=== PATIENT | male | born 1945 | race Caucasian/White ===

== ENCOUNTER 2023-06-04 23:31 | Inpatient (IN) | payer OTHER, SELFPAY ==
[2023-06-04 19:33] VITALS: BP 104/69
[2023-06-04 19:40] VITALS: BMI 31.9
[2023-06-04] MEDS: TYLENOL 1000 MG PO (19:43)
[2023-06-04 19:56] LABS: % Basophils 0.6 % (0-2); % Immature Granulocytes 0.2 % (0-0.5); % Lymphocytes 6.5 % (20.5-51.1); % Monocytes 7.8 % (1.7-9.3); % Neutrophils 84.9 % (42.2-75.2); Absolute Basophils 0.1 10^3/uL (0-0.2); Absolute Lymphocytes 0.6 10^3/uL (1.2-3.4); Absolute Monocytes 0.7 10^3/uL (0.1-0.6); Absolute Neutrophils 7.6 10^3/uL (1.4-6.5); Hematocrit 43.6 % (39.0-52.0); Hemoglobin 15.7 g/dL (13.0-18.0); Mean Corpuscular Hgb 34.9 pg (27.0-31.0); Mean Corpuscular Volume 96.9 fL (80.0-94.0); Mean Platelet Volume 10.4 fL (7.4-10.4); Nucleated Red Blood Cells % 0 % (-); Platelet Count 198 10^3/uL (130-400); Red Cell Dist. Width 12.4 % (11.5-14.5)
[2023-06-04 20:06] LABS: INR 1.28; PT 15.8 Sec (11.4-14.6)
[2023-06-04 20:15] LABS: ALT (SGPT) 21 U/L (0-50); AST (SGOT) 28 U/L (17-59); Albumin 3.9 g/dl (3.5-5.0); Alkaline Phosphatase 51 U/L (38-126); Blood Urea Nitrogen 22 mg/dl (9-20); Calcium 8.9 mg/dl (8.4-10.2); Carbon Dioxide 22 mmol/L (22-30); Chloride 95 mmol/L (98-107); Estimated Creatinine Clearance 64 ml/min; Glucose 396 mg/dl (70-99); Potassium 4.5 mmol/L (3.5-5.1); Sodium 129 mmol/L (135-145); Total Bilirubin 0.7 mg/dl (0.2-1.3); Total Protein 6.5 g/dl (6.3-8.2); eGFR > 60.00
[2023-06-04 21:07] VITALS: BP 101/66
--- NOTE | 2023-06-04 21:33 | ED.GENMED ---
History of Present Illness
General
Chief Complaint: Cold/Flu/URI Symptoms
Source: patient and spouse
Time Seen by Provider: 06/04/23 21:18
Travel History
Have you had any contact with someone who has COVID-19?: Yes
Comment: pt tested positive
Do you have any symptoms of coronavirus? Fever > 100 degrees, chills, cough, shortness of breath, sore throat, loss of taste or smell, muscle aches, or headache?: Yes
Symptoms:: tested positive
History of Present Illness
History of Present Illness:
77-year-old male with past medical history of hypertension, hyperlipidemia, diabetes, factor V Leiden deficiency presenting to the emergency department with from home after patient tested positive for COVID earlier this evening, noted
patient had significant weakness and fell to the ground, seems to be 'a little bit more loopy than usual', persistently febrile and generally feeling unwell. Spouse notes that the last time patient had similar he required admission for remdesivir
and steroids. Patient endorses a persistent cough today but is otherwise denying any shortness of breath, palpitations, diaphoresis, nausea, vomiting, abdominal pain or any other concerns.
Past History
Past History
ED Past Medical History: HTN, Hypercholesterolemia, NIDDM and Other (Factor V Leiden)
ED Past Surgical History: Other (Hernia repair)
Social History
Tobacco: Non-smoker
Alcohol: None
Drug: None
Personal:
Living: with family
Review of Systems
Review of Systems
All Other Systems: ROS reviewed and negative except as documented in HPI and ROS
Phy Exam
Physical Exam
Physical Exam:
GENERAL: Alert , in no apparent distress
EYE: conjunctiva clear
NECK: Supple
ENT: o/p clr, mmm.
CARDIAC: R tachycardic rate and rhythm with heart rate between 130 and 140 bpm
LUNGS: Clear breath sounds bilaterally, no acute respiratory distress, no wheezes/rales/rhonchi
NEUROLOGICAL: Alert and oriented
SKIN: Warm and dry, skin intact.
MUSCULOSKELETAL: well perfused.
PSYCH: Normal and appropriate interaction.
Scores
Heart Failure Risk
Heart Failure Risk Score: Not Applicable
Heart Score for Chest Pain Patients
STEMI patient?: Not applicable
Withdrawal Assessment of Alcohol
Withdrawal Assessment Completed?: Not applicable
Course
Orders/Labs/Results
Orders:
Orders
06/04/23 19:40
Acetaminophen [Tylenol] 1,000 mg PO NOW STA
06/04/23 19:44
CXR2 [CR Chest - 2 Views ] Urgent
Comment:
Reason For Exam: cough covid positive
06/04/23 19:49
CMP [Comprehensive Metabolic Panel] Urgent
Complete Blood Count/With Diff Urgent
PT/INR [Prothrombin Time] Urgent
06/04/23 21:10
ECG [Electrocardiogram (*1)] Urgent
Reason for Study: Tachycardia
Cardiology Consult: Unknown
06/04/23 21:11
EKG- Treatment ONCE
06/04/23 21:29
B-Hydroxybutyrate Urgent
PTT Urgent
Urinalysis Reflex To Culture Urgent
0.9% Sodium Chloride 1000 ml [Nss] 1,000 ml IV BOLUS
Insulin Aspart [NOVOLOG vial] 5 units SC NOW STA
Abnormal Lab Results
06/04/23
19:49
RBC 4.50 L 10^6/uL
(4.70-6.10)
MCV 96.9 H fL
(80.0-94.0)
MCH 34.9 H pg
(27.0-31.0)
Absolute Neuts (auto) 7.6 H 10^3/uL
(1.4-6.5)
Absolute Lymphs (auto) 0.6 L 10^3/uL
(1.2-3.4)
Absolute Monos (auto) 0.7 H 10^3/uL
(0.1-0.6)
Neutrophils % 84.9 H %
(42.2-75.2)
Lymphocytes % 6.5 L %
(20.5-51.1)
PT 15.8 H Sec
(11.4-14.6)
Sodium 129 L mmol/L
(135-145)
Chloride 95 L mmol/L
(98-107)
BUN 22 H mg/dl
(9-20)
Glucose 396 H mg/dl
(70-99)
06/04/23 19:49
06/04/23 19:49
Vital Signs
Initial and Last Documented VS:
Initial Vital Signs
Temp Pulse Resp BP Pulse Ox
101.6 F H 150 20 104/69 94
06/04/23 19:33 06/04/23 19:33 06/04/23 19:33 06/04/23 19:33 06/04/23 19:33
Last Documented Vital Signs
Temp Pulse Resp BP Pulse Ox
101.7 F H 132 24 101/66 93
06/04/23 21:24 06/04/23 21:07 06/04/23 21:07 06/04/23 21:07 06/04/23 21:25
MDM/Problems Addressed
Differential Diagnosis Includes:
COVID, pneumonia, I do not have concern for PE given symptoms started today and patient is on Coumadin.
MDM/Problems Addressed:
77-year-old male present emergency department for evaluation after testing positive for COVID earlier today, notes that patient seemed to have a slight change in mental status, generalized weakness and fell earlier today, fever found in the
emergency department and patient was given Tylenol for this but remains persistently febrile. Oxygen saturation between 90% on room air and 94% on room air. Patient's heart rate persistently around 135 bpm. Other lab work reveals patient has a
subtherapeutic INR, sodium of 129 and a glucose of 396. Anion gap of 12. Urinalysis and beta hydroxybutyrate ordered. Normal saline and 5 units subcutaneous NovoLog ordered. Will admit for continued evaluation and treatment.
Chronic conditions affecting care: DM
Acute Exacerbation and/or Progression of Chronic Illness: DM
*Pulse Oximetry
Patient hypoxic: no
*EKG
Interpreted by ED Provider?: Yes
Comparison EKG: no changes
Heart Rate: 137
Rate: tachycardiac
Rhythm: sinus
[place]: normal axis
Ischemia: no ischemia
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
Rate: tachycardiac
Rhythm: sinus
*Critical Care Note
Total Time (30-74mins, 75-104mins- exclusive of procedures): Not Applicable
Data Reviewed
Review of Other/Old Records Reveals: Labs and Discharge Summary
Source: patient and spouse
Patient Management
Discussion with other providers: Hospitalist
Escalation/DeEscalation of care consider admission/obs:
Hospitalist is aware and accepts patient for continued evaluation and treatment
ED Attending Note
-
Portions of this chart may have been created with voice recognition software.� Occasional wrong word or��sound alike� substitutions may have occurred due to the inherent limitations of voice recognition software.
Discharge Plan
Departure
Patient Disposition: Admit
Date of Disposition: 06/04/23
Time of Disposition: 21:33
Presentation/result/management discussed w/ accepting MD/DO: Hospitalist
Discharge Problem:
COVID-19, Generalized weakness, Hyponatremia, Diabetes mellitus with hyperglycemia
Prescriptions:
No Action
simvastatin 40 MG tablet
40 mg PO HS
lorazepam 0.5 MG tablet
0.5 mg PO DAILY PRN (Reason: restless leg)
(DME) blood sugar diagnostic [Blood Glucose Test] 1 EACH strip
1 [facility] ACHS Qty: 100 0RF
Rx Instructions:
OneTouch Verio
E11.65
(DME) pen needle, diabetic 1 EACH needle
1 ea [facility] ACHS Qty: 200 0RF
Rx Instructions:
BD MONSERRAT pen needles
E11.65
(DME) lancets 1 EACH misc
1 ea [facility] ACHS Qty: 100 0RF
Rx Instructions:
Delica lancets
E11.65
metformin 1,000 MG tablet
1,000 mg PO BID@0800,1700 Qty: 60 0RF
Rx Instructions:
E11.65
glimepiride 1 MG tablet
1 mg PO BID Qty: 60 0RF
Rx Instructions:
E11.65
lisinopril 2.5 MG tablet
2.5 mg PO DAILY 30 Days Qty: 30 0RF
warfarin [Jantoven] 5 MG tablet
See Rx Instructions .ROUTE .COMPLEX
Rx Instructions:
5 mg orally ;RESUME ONCE INR <3
warfarin [Jantoven] 5 MG tablet
See Rx Instructions .ROUTE .COMPLEX
Rx Instructions:
7mg SUTUTHSA
Interventions
Interventions:
*Risk Screen - Suicide Last Done: 06/04/23 19:33
*General Assessment Last Done: 06/04/23 19:33
*Neglect/Abuse Screening Last Done: 06/04/23 19:33
ED- Fall Risk Assessment Last Done: 06/04/23 19:33
*ED COVID-19 Vaccine History Last Done: 06/04/23 19:33
ED- Pulmonary Assessment Last Done: 06/04/23 21:25
--- NOTE | 2023-06-04 21:34 | HPS.HSE ---
Addendum entered and electronically signed by Sergio Sarabia MD 06/04/23 22:10:
I saw and examined the patient.
The OUTCOMES ANALYST or PA's note was reviewed and I agree with the note.
Comment:
HPI
77M HX Covid iin June 2020 require admssion , HTN, hyperlipidemia, DM, factor V Leiden deficiency pw tested positive for COVID earlier this evening, for significant weakness and fell to the ground, seems to be 'a little bit more loopy than
usual', persistently febrile and generally feeling unwell. Patient endorses a persistent cough today but is otherwise denying any shortness of breath, palpitations, diaphoresis, nausea, vomiting, abdominal pain or any other concerns.
Spouse notes that the last time patient had similar he required admission for remdesivir and steroids.
PHX
1. Diabetes mellitus, uncontrolled.
2. Chronic hypercoagulable state secondary to factor V Leiden.
3. History of deep vein thrombosis on chronic anticoagulation with
Coumadin.
4. Anxiety.
5. Essential hypertension.
Reviewed VS: T 101.7 ST @ 130s Relatively hyoptensive 100/66 POx 93 - 94 on RA
PE
Gen: Weak and fatigued but not toxic looking , wearing NCO2
HEENT: Dry mucous membranes
Neck: supple
Lungs: symmetric AE, no wheeze
Cor: RRR S1 S2
Abdomen: soft , non distended
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
MS: no edema
Psych: normal mood and affect
Data
nl WCC
INR 1.28
Na+ 129 corrected Na 134 for BG 396
Cl 95
BUN 22
Cr 1.1
nl Cr
nl LFTs
Pending B- Hydroxybutyrate
Pending CXR report - ? infiltrates on Rt base
EKG;
ST
INFERIOR INFARCT , AGE UNDETERMINED
ABNORMAL ECG
WHEN COMPARED WITH ECG OF 21-JUL-2020 19:27, NO SIGNIFICANT CHANGE WAS FOUND
Last hospitalist admission: 07/21/20 - 07/27/20
DC Dxs:
1. Acute hypoxic respiratory insufficiency.
2. Toxic metabolic encephalopathy secondary to COVID-19 pneumonia.
3. Mild hyponatremia.
4. Acute kidney injury.
5. Lactic acidosis secondary to volume depletion in the setting of
metformin usage.
6. Supratherapeutic INR.
ASSESSMENT & PLAN
Acute viral Covid pos - onset today
Mild hypoxia- POx 90-94
Associated weakness and weakness
Suspect early TME - may be able to abort with current supportive care
HX Covid in June 2020 as above
Vax HX ; Pfizer in 2019 and2020
- Paxlovid for now till eval by ID
- IV Decadron 6mg daily
- Supportive care : O2 < IVF, Tyelnol PRN
- ID consult for Paxlovid vs. Rem D
SIRS picture due to acute Covifd infection
- IVF
- supportive care
Pseudohyponatremia due to Hypglycemia
- Trend Na
Essential HTN on Lisinopril
DMT2
- Held Metformin
- cont. Glimepride
- add low ISS
HLD on Simvastatin
factor V Leiden deficiency
- cont Warfarin
- daily INR
DVT Px: on chr Coumadin
Code: Full code
IP TLM
Original Note:
Family Physician
-
Family Physician:
Chief Complaint
-
sob
generalized weakness
History of Present Illness
77-year-old male with past medical history of hypertension, hyperlipidemia, diabetes, factor V Leiden deficiency presenting to the emergency department with from home after patient tested positive for COVID earlier this evening, patient woke up
very weak, tired. he was having trouble even walking. stated non productive cough. did not know he had fever until he got here. denied CABRERA, dizzy or syncopal episode. stated sob worse with exertion. denied chest pain. denied abdominal pain
n,v,d.denied dysuria or hematuria.
received tylenol, insulin and fluids in ER. admitting for further management.
got all doses of covid vaccines (e-contratos)
Medical History
Past Medical History
Past Medical History: Reports Other
Additional Past Medical History:
htn
hld
DVT
factor V leiden
Past Surgical History: Reports Other
Additional Past Surgical History:
hernia repair
Social History
Tobacco: Non-smoker
Alcohol: None
Drug: None
Personal:
Living: With Family
Family History
Family History: Not pertinent
Allergies / Home Medications
Allergies reflects when Allergies were last updated in [facility] [employer].
Home Medications with original date entered in [facility] [employer]
Allergy/Medication List:
Allergies
Allergy/AdvReac Type Severity Reaction Status Date / Time
No Known Allergies Allergy Verified 06/04/23 19:32
Home Medications
lorazepam 0.5 mg tablet 0.5 mg PO DAILY PRN restless leg 07/21/20
simvastatin 40 mg tablet 40 mg PO HS 07/21/20
glimepiride 1 mg tablet 1 mg PO BID #60 tabs 07/27/20
lisinopril 2.5 mg tablet 2.5 mg PO DAILY 30 days #30 tabs 07/27/20
metformin 500 mg tablet 1,000 mg PO BID@0800,1700 06/04/23
warfarin 5 mg tablet (Jantoven) 5 mg PO MOWEFR@1800 06/04/23
warfarin 5 mg tablet (Jantoven) 7.5 mg PO SUTUTHSA@1800 06/04/23
Review of Systems
-
Constitutional: Reports No Symptoms
EENT: Reports No Symptoms
Respiratory: Reports Cough and Trouble Breathing
Cardiac: Reports No Symptoms
Abdomen/GI: Reports No Symptoms
: Reports No Symptoms
Musculoskeletal: Reports No Symptoms
Skin: Reports No Symptoms
Neurological: Reports Weakness
Endocrine: Reports No Symptoms
Hematologic/Lymphatic: Reports No Symptoms
Psych: Reports No Symptoms
Physical Exam
Vital Signs
Vital Signs
Temp Pulse Resp BP Pulse Ox
101.7 F H 132 24 101/66 93
06/04/23 21:24 06/04/23 21:07 06/04/23 21:07 06/04/23 21:07 06/04/23 21:25
Physical Exam
General: Well Developed, Well Nourished and No Apparent Distress
HEENT: NormoCephalic, Moist mucous membranes and Atraumatic
Respiratory: Clear
Cardiac: S1/S2 and Regular Rhythm; No Murmur or Rub
GI: Soft, Non Tender, Non Distended and Normal Bowel Sounds; No Organomegaly
Rectal: Deferred by Provider
Musculoskeletal: No Clubbing, No Cyanosis and No Edema
Skin: No Rash
Neuro: AO x 3 and Nonfocal/grossly intact
Psych: Calm
Laboratory Results
-
06/04/23 19:49
06/04/23 19:49
Laboratory Results
PT 15.8 Sec (11.4-14.6) H 06/04/23 19:49
INR 1.28 06/04/23 19:49
Total Bilirubin 0.7 mg/dl (0.2-1.3) 06/04/23 19:49
AST 28 U/L (17-59) 06/04/23 19:49
ALT 21 U/L (0-50) 06/04/23 19:49
Alkaline Phosphatase 51 U/L (38-126) 06/04/23 19:49
Data Reviewed
-
Lab Data: Labs Reviewed by me
Impression/Plan
-
# Acute hypoxia likely from acute COVID-19 infection
-90-94 on room air
-Temp of 101.7
-Chest x-ray pending
-Continue supplemental oxygen to keep sat greater than 92
-Wean as tolerated
-IV Decadron
-Paxlovid
-Tylenol as needed for fever and pain
-mucinex as needed for cough
-ID consult
# Pseudohyponatremia with elevated blood sugar
-Corrected sodium 136
# Tachycardia dehydration
-EKG with sinus tachycardia
-Fluids continued
# Type 2 diabetes with hyperglycemia
-Blood sugar elevated into the 390's
-Received NovoLog 5 units in ER
-Glimepiride continued
-Hold metformin
-Sliding scale
# Essential hypertension
-Lisinopril continued
# Hyperlipidemia
-Statin held as patient is on Paxlovid
# History of DVT/factor V Leyden
-Coumadin continued
-Daily PT/INR
# DVT prophylaxis
-Coumadin
# CODE STATUS
-Full code
[2023-06-04] MEDS: NSS 1000 IV (21:41)
[2023-06-04] MEDS: NOVOLOG vial 5 UNITS SC (21:58)
[2023-06-04 22:12] LABS: APTT 29.2 Sec (23.4-35.0)
[2023-06-04 22:21] LABS: B-Hydroxybutyrate 0.15 mmol/L (0.02-0.27)
[2023-06-04 22:24] LABS: COVID-19 Antigen Positive (Negative)
[2023-06-04 22:53] VITALS: BP 113/77
[2023-06-05] VITALS (8 sets, daily range): BP systolic 104–127; BP diastolic 53–79; BMI 32.3
[2023-06-05] MEDS: TYLENOL 1000 MG PO (00:23)
[2023-06-05] MEDS: NSS 1000 IV (01:27)
[2023-06-05] MEDS: PAXLOVID 2X150 MG-100 MG DOSE PACK 1 DOSE PO ×3 (01:27→21:00)
[2023-06-05] MEDS: MUCINEX 600 MG PO ×3 (01:30→21:36)
[2023-06-05 06:14] LABS: INR 1.43; PT 17.2 Sec (11.4-14.6)
[2023-06-05 06:39] LABS: ALT (SGPT) 18 U/L (0-50); AST (SGOT) 28 U/L (17-59); Albumin 3.2 g/dl (3.5-5.0); Alkaline Phosphatase 50 U/L (38-126); Blood Urea Nitrogen 19 mg/dl (9-20); Calcium 8.4 mg/dl (8.4-10.2); Carbon Dioxide 24 mmol/L (22-30); Chloride 99 mmol/L (98-107); Estimated Creatinine Clearance 64 ml/min; Glucose 212 mg/dl (70-99); Sodium 133 mmol/L (135-145); Total Bilirubin 0.7 mg/dl (0.2-1.3); Total Protein 5.5 g/dl (6.3-8.2); eGFR > 60.00
[2023-06-05 07:30] LABS: Urine Albumin 1+ (Neg - Trace); Urine Bilirubin Negative (Negative); Urine Character Clear (Clear); Urine Color Yellow; Urine Glucose 2+ (Negative); Urine Ketone Trace (Negative); Urine Leukocyte Negative (Negative); Urine Nitrite Negative (Negative); Urine Occult Blood 4+ (Negative); Urine Specific Gravity 1.015 (<1.030); Urine Urobilinogen Negative (Neg - 1+)
[2023-06-05 08:06] LABS: Urine Amorphous Seen; Urine Mucus Few; Urine Squamous Cell 0-2 /LPF (Few); Urine White Cell 0-2 /HPF (0-5)
[2023-06-05 08:48] LABS: Glucose - Point of Care 266 mg/dl (70-99)
[2023-06-05 08:54] LABS: Glycohemoglobin (HgbA1c) 8.3 % (4.0-5.6)
[2023-06-05] MEDS: NOVOLOG FLEXPEN-MODERATE RESISTANCE 5 UNITS SC ×2 (08:55→17:07)
[2023-06-05] MEDS: TYLENOL 650 MG PO (08:55)
[2023-06-05] MEDS: AMARYL 1 MG PO ×2 (08:55→17:04)
[2023-06-05] MEDS: DECADRON 6 MG IV (08:56)
[2023-06-05] MEDS: ZESTRIL 2.5 MG PO (08:56)
--- NOTE | 2023-06-05 10:37 | PTCARENOTE ---
pt is aaox3 for this nurse. pt had a fall at home but in his opinion it does not count because he tripped over the dog. pt is oob with minimal assistance and on a chair alarm due to being behind a closed door for covid precautions. pt had a good
appetite and received insulin for his sugar of 266 this morning. See MAR for proper documentation.
[2023-06-05 11:26] LABS: Glucose - Point of Care 241 mg/dl (70-99)
--- NOTE | 2023-06-05 11:56 | W.PN.HOSP.TC ---
Today's Communication/Plan
-
Paxlovid
Decadron
follow INR
ID consult
Assessment / Plan
Assessment / Plan
# Acute hypoxia likely from acute COVID-19 infection
Pt states he was vaccinated and boosted, but did not receive most recent booster (last one he had was ~1yr ago)
-90-94 on room air on admission
most recently 93-93% on room air
-Temp of 101.7
-Chest x-ray: No acute disease of the chest.
-Continue supplemental oxygen to keep sat greater than 92
-Wean as tolerated
-IV Decadron
-Paxlovid
-Tylenol as needed for fever and pain
-mucinex as needed for cough
-ID consult
# Pseudohyponatremia with elevated blood sugar
-Corrected sodium 136
# Tachycardia dehydration
-EKG with sinus tachycardia
-Fluids continued
# Type 2 diabetes with hyperglycemia
-Blood sugar elevated into the 390's
-Received NovoLog 5 units in ER
-Glimepiride continued
-Hold metformin
Hga1c 8.3%
-Sliding scale with insulin coverage
# Essential hypertension
-Lisinopril continued
# Hyperlipidemia
-Statin held as patient is on Paxlovid
# History of DVT/factor V Leyden
-Coumadin continued (?was pt really taking, would like to trend dose for 2-3 days prior to increasing dose)
-Daily PT/INR
1.28-->1.43
# DVT prophylaxis
-Coumadin
# CODE STATUS
-Full code
Anticipated Discharge: > 48 hours
Subjective/Interval History
-
Date of Service: June 05, 2023
Does not feel well, significant cough, runny nose, but denies sob
Objective Data
-
Labs:
Laboratory Results
06/05/23
05:32
PT 17.2 H
INR 1.43
Sodium 133 L
Potassium 4.0
Chloride 99
Carbon Dioxide 24
BUN 19
Creatinine 1.1
Glucose 212 H
Calcium 8.4
Total Bilirubin 0.7
AST 28
ALT 18
Alkaline Phosphatase 50
Vital Signs:
Vital Signs
Temp Pulse Resp BP Pulse Ox
98.7 F 86 16 107/58 93
06/05/23 11:27 06/05/23 11:27 06/05/23 11:27 06/05/23 11:27 06/05/23 11:27
I&O
06/04/23 06/05/23 06/06/23
06:59 06:59 06:59
Intake Total 320 / 320
Output Total 675 / 675
Balance -355 / -355
Review of Systems
-
History Source: Patient and Coordinated Provider
Constitutional: Reports Fever (98.7-101.7 since admission)
EENT: Reports Runny Nose
Respiratory: Reports Cough; Denies Trouble Breathing
Cardiac: Reports No Symptoms; Denies Chest Pain
Abdomen/GI: Denies Abdominal Pain
Neuro: Reports Other (pt states he feels 'looped')
Physical Exam
-
General: Well Developed, Well Nourished and No Apparent Distress
HEENT: Normocephalic, Atraumatic and Moist Mucous Membranes
Respiratory: Clear to Auscultation; Negative Wheezes, Rales or Rhonchi
Cardiac: Regular Rhythm and S1/S2
GI: Soft, Nontender and Nondistended
Neuro: Awake, Alert and Oriented
--- NOTE | 2023-06-05 12:40 | CM ---
COVID: Reviewed medical records. 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 PT evaluation recommended home with no PT. Diacharge POC: Home with no services.
--- NOTE | 2023-06-05 12:58 | CON.ID ---
Consultation
-
Date/Time Consultation Requested: 06/05/23 00:38
Date/Time Consultation Performed: 06/05/23 12:58
Requesting Provider: Asmita
Performing Provider: Dr Jones
Reason for Consultation: covid
Chief Complaint / Past History
Chief Complaint
covid +, fall, ams
History of Present Illness
Mr Ward is a 77 year old male with history of factor V Leiden deficiency, covid infection 2020 now presenting for covid infection with fevers, malaise, cough. No: shortness of breath, palpitations, diaphoresis, nausea, vomiting, abdominal pain.
felt he was a bit confused. Reports vaccinated x3 and infected x1, thinks last shot was about 2 years ago. When infected had remdesivir and steroids. This time at home he fell to the ground and was brought to the hospital for further
evaluation.
Since arrival here patient has been febrile to tmax of 101.6 orally (101.7 rectally), bp stable, saturating 93-94% on room air, wbc 9.0, hgb 15.7, plt 198, L shift is noted, lymphopenia noted, INR 1.4 on arrival, cr 1.1, a1c 8.3, t bili 0.7, ast 28,
alt 18, alk phos 50, covid pcr +, CXR: no acute disease, no cultures done, currently on steroids and paxlovid, ID is consulted for assistance with management.
Today reporting improved malaise, walking around the room without issue. Has appetite, cough occasionally productive.
Past History
Additional Past Medical History:
1. Diabetes mellitus, uncontrolled.
2. Chronic hypercoagulable state secondary to factor V Leiden.
3. History of deep vein thrombosis on chronic anticoagulation with
� � Coumadin.
4. Anxiety.
5. Essential hypertension.
Additional Past Surgical History:
1. hernia repair
Allergy History:
No Known Allergies Allergy (Verified 06/04/23 19:32)
Medications Reviewed: Yes
Social History
Tobacco: Non-Smoker
Alcohol: None
Drug: None
Family History
Family History: Not Pertinent
Review of Systems
Review of Systems
General: Fever and Chills
Respiratory: Cough
All systems: All other systems were reviewed and were negative
Vital Signs
Temp Pulse Resp BP Pulse Ox
98.7 F 86 16 107/58 93
06/05/23 11:27 06/05/23 11:27 06/05/23 11:27 06/05/23 11:27 06/05/23 11:27
Physical Exam
Physical Exam
Constitutional: No Acute Distress
Cardiovascular: Regular Rate and S1/S2; Negative Murmur or Rub
Pulmonary: Clear, Symmetric and Non Labored; Negative Wheezes, Rales or Rhonchi
Gastrointestinal: Soft, Non Tender, Non Distended and Normal Bowel Sounds
Skin: Warm and Dry; Negative Rash or Jaundice
Lab / Diagnostic Study Results
06/04/23 19:49
06/05/23 05:32
Abs Immat Gran (auto) 0.0 10^3/uL (0-0.05) 06/04/23 19:49
Absolute Neuts (auto) 7.6 10^3/uL (1.4-6.5) H 06/04/23 19:49
Absolute Lymphs (auto) 0.6 10^3/uL (1.2-3.4) L 06/04/23 19:49
Absolute Monos (auto) 0.7 10^3/uL (0.1-0.6) H 06/04/23 19:49
Absolute Basos (auto) 0.1 10^3/uL (0-0.2) 06/04/23 19:49
Immature Gran % 0.2 % (0-0.5) 06/04/23 19:49
Neutrophils % 84.9 % (42.2-75.2) H 06/04/23 19:49
Lymphocytes % 6.5 % (20.5-51.1) L 06/04/23 19:49
Monocytes % 7.8 % (1.7-9.3) 06/04/23 19:49
Eosinophils % 0.0 % (0-6) 06/04/23 19:49
Basophils % 0.6 % (0-2) 06/04/23 19:49
PT 17.2 Sec (11.4-14.6) H 06/05/23 05:32
INR 1.43 06/05/23 05:32
Ur Squamous Epith Cells 0-2 /LPF (Few) 06/05/23 07:01
Assessment / Plan
COVID Infection -Mild
AMS
- previously vaccinated x3 and 1 previous covid infection
- saturating well on room air
- agree with paxlovid
- if begins requiring more O2 could restart steroids, in the mean time, particularly presenting with delirium, I feel risks outweigh benefits at this moment
- follow clinically if does this well or better overnight then would consider discharge in the AM with paxlovid and follow up with PCP
--- NOTE | 2023-06-05 13:07 | PTOTSP ---
pt currently demonstrates ability to complete simple ADLs, functional transfers, ambulation with supervision to no assistance. no acute OT needs identified, will sign off at this time.
[2023-06-05] MEDS: NOVOLOG FLEXPEN-MODERATE RESISTANCE SC (14:51)
[2023-06-05] MEDS: COUMADIN 5 MG PO (17:04)
[2023-06-05 17:07] LABS: Glucose - Point of Care 287 mg/dl (70-99)
[2023-06-05 21:43] LABS: Glucose - Point of Care 311 mg/dl (70-99)
[2023-06-05] MEDS: NOVOLOG FLEXPEN 7 UNITS SC (22:01)
[2023-06-05 23:57] LABS: Glucose - Point of Care 253 mg/dl (70-99)
[2023-06-06] VITALS (7 sets, daily range): BP systolic 94–125; BP diastolic 61–72
[2023-06-06 06:18] LABS: INR 1.49; PT 18.2 Sec (11.4-14.6)
[2023-06-06 06:38] LABS: ALT (SGPT) 21 U/L (0-50); AST (SGOT) 32 U/L (17-59); Albumin 3.5 g/dl (3.5-5.0); Alkaline Phosphatase 55 U/L (38-126); Blood Urea Nitrogen 25 mg/dl (9-20); Calcium 8.3 mg/dl (8.4-10.2); Carbon Dioxide 25 mmol/L (22-30); Chloride 102 mmol/L (98-107); Estimated Creatinine Clearance 71 ml/min; Glucose 245 mg/dl (70-99); Potassium 4.4 mmol/L (3.5-5.1); Sodium 132 mmol/L (135-145); Total Bilirubin 0.6 mg/dl (0.2-1.3); Total Protein 5.9 g/dl (6.3-8.2); eGFR > 60.00
[2023-06-06 07:11] LABS: Glucose - Point of Care 258 mg/dl (70-99)
[2023-06-06] MEDS: NOVOLOG FLEXPEN-MODERATE RESISTANCE 5 UNITS SC ×3 (08:16→17:21)
[2023-06-06] MEDS: PAXLOVID 2X150 MG-100 MG DOSE PACK 1 DOSE PO ×2 (08:17→20:57)
[2023-06-06] MEDS: AMARYL 1 MG PO ×2 (08:17→17:22)
[2023-06-06] MEDS: MUCINEX 600 MG PO ×2 (08:17→20:57)
[2023-06-06] MEDS: ZESTRIL 2.5 MG PO (08:17)
[2023-06-06] MEDS: COUMADIN 2 MG PO (09:59)
--- NOTE | 2023-06-06 10:18 | PTCARENOTE ---
pt oob to the chair with no assist. pt rings appropriately and ate all of his breakfast after receiving his sliding scale insulin. See MAR for proper charting. pt given 0900 coumadin this AM and is continuing doses of paxlovid.
--- NOTE | 2023-06-06 10:45 | W.PN.HOSP.TC ---
Today's Communication/Plan
-
continue Paxlovid
resume Metformin (pharm states does not have interaction with Paxlovid)
Assessment / Plan
Assessment / Plan
# Acute hypoxia likely from acute COVID-19 infection
Pt states he was vaccinated and boosted, but did not receive most recent booster (last one he had was ~1yr ago)
-90-94 on room air on admission
most recently 93-96% on room air
-Currently afebrile
-Chest x-ray: No acute disease of the chest.
-ID stopped IV Decadron
-Paxlovid to continue
-Tylenol as needed for fever and pain
-mucinex as needed for cough
-ID consult appreciated
# Pseudohyponatremia with elevated blood sugar
-Corrected sodium 136
# Tachycardia dehydration resolved, HR now NSR in 60's
-EKG with sinus tachycardia
-Fluids continued
# Type 2 diabetes with hyperglycemia
-Blood sugar elevated into the 390's
-Received NovoLog 5 units in ER
-Glimepiride continued
-Hold metformin
Hga1c 8.3%
-Sliding scale with insulin coverage
will resume preadmit oral meds. Discussed with , he will need follow up with PCP to adjust diabetic medication, with Decadron stopped, diabetic needs should drop
# Essential hypertension
-Lisinopril continued
# Hyperlipidemia
-Statin held as patient is on Paxlovid
# History of DVT/factor V Leyden
-Coumadin continued
discussed with , she states his INR has been perfect and did not miss doses prior to admission, she believes it relates to the Covid
-Daily PT/INR
1.28-->1.43-->1.49-extra 2 mg given this morning
# DVT prophylaxis
-Coumadin
# CODE STATUS
-Full code
reviewed pt's . Recommended she contact her PCP and find out if she should do something to protect herself from Covid prior to pt coming home
Anticipated Discharge: Within 24 hours
Subjective/Interval History
-
Date of Service: June 06, 2023
Generally feels better, not sob
Objective Data
-
Labs:
Laboratory Results
06/06/23
05:09
PT 18.2 H
INR 1.49
Sodium 132 L
Potassium 4.4
Chloride 102
Carbon Dioxide 25
BUN 25 H
Creatinine 1.0
Glucose 245 H
Calcium 8.3 L
Total Bilirubin 0.6
AST 32
ALT 21
Alkaline Phosphatase 55
Vital Signs:
Vital Signs
Temp Pulse Resp BP Pulse Ox
97.6 F 65 16 125/68 95
06/06/23 07:00 06/06/23 07:00 06/06/23 07:00 06/06/23 08:17 06/06/23 09:39
I&O
06/05/23 06/06/23 06/07/23
06:59 06:59 06:59
Intake Total 320 / 320 2980 / 2980
Output Total 675 / 675
Balance -355 / -355 2980 / 2980
Review of Systems
-
History Source: Patient and Coordinated Provider
Constitutional: Reports Fever (98.7-101.7 since admission, last fever of 100.4 was 24hrs)
EENT: Reports Runny Nose
Respiratory: Reports Cough; Denies Trouble Breathing
Cardiac: Reports No Symptoms; Denies Chest Pain
Abdomen/GI: Denies Abdominal Pain
Neuro: Reports Other (pt states he was feeling 'looped', but feels better currently)
Physical Exam
-
General: Well Developed, Well Nourished and No Apparent Distress
HEENT: Normocephalic, Atraumatic and Moist Mucous Membranes
Respiratory: Clear to Auscultation; Negative Wheezes, Rales or Rhonchi
Cardiac: Regular Rhythm and S1/S2
GI: Soft, Nontender and Nondistended
Musculoskeletal: No Clubbing, No Cyanosis and No Edema
Neuro: Awake, Alert (as per , mentation appears back to baseline) and Oriented
[2023-06-06 11:20] LABS: Glucose - Point of Care 299 mg/dl (70-99)
--- NOTE | 2023-06-06 11:48 | W.PN.ID1 ---
Date of Service
Date of Service: June 06, 2023
Today's Communication
- agree with paxlovid x 5 days
- in my opinion already exposed, there is no recommendation for postexposure prophylaxis but if she develops symptoms would call PCP for instructions, booster too late to affect her clinical course
- stable for discharge to complete 5 days of paxlovid and follow up with PCP
Assessment / Plan
COVID Infection -Mild
AMS
- previously vaccinated x3 and 1 previous covid infection
- saturating well on room air
- agree with paxlovid x 5 days
- in my opinion already exposed, there is no recommendation for postexposure prophylaxis but if she develops symptoms would call PCP for instructions, booster too late to affect her clinical course
- stable for discharge to complete 5 days of paxlovid and follow up with PCP
Chief Complaint
-: Other (covid)
Subjective / Review of Systems
afebrile
bp stable
remains on room air with excellent saturations
cr 1.0
no complaints
Vital Signs / Physical Exam
Vital Signs
Vital Signs
Temp Pulse Resp BP Pulse Ox
98 F 73 16 116/61 98
06/06/23 11:00 06/06/23 11:00 06/06/23 11:00 06/06/23 11:00 06/06/23 11:00
Physical Exam
Constitutional: No Acute Distress
Cardiovascular: Regular Rate and S1/S2; Negative Murmur or Rub
Pulmonary: Clear and Symmetric; Negative Wheezes or Rales
Gastrointestinal: Soft, Non Tender, Non Distended and Normal Bowel Sounds
Skin: Warm and Dry; Negative Rash or Jaundice
Objective Data
Lab Data
Lab Results
06/04/23 19:49
06/06/23 05:09
PT 18.2 Sec (11.4-14.6) H 06/06/23 05:09
INR 1.49 06/06/23 05:09
APTT 29.2 Sec (23.4-35.0) 06/04/23 21:43
Estimated Creat Clear 71 ml/min 06/06/23 05:09
Total Bilirubin 0.6 mg/dl (0.2-1.3) 06/06/23 05:09
AST 32 U/L (17-59) 06/06/23 05:09
ALT 21 U/L (0-50) 06/06/23 05:09
Alkaline Phosphatase 55 U/L (38-126) 06/06/23 05:09
Most recent labs reviewed.
Micro Results:
06/05/23 13:39 Blood Culture - Pending
Blood/Venous
06/05/23 13:19 Blood Culture - Pending
Blood/Venous
Care Review
Plan reviewed with: Physician (Dr Crowe - post exposure ppx)
--- NOTE | 2023-06-06 12:59 | PN.CDI ---
CDI
- -
CDI:
Physician Documentation Request
Admit Date: 06/04/23 23:31
Dear Doctor Amrita,
Patient admitted with COVID-19 infection.
On admission, T max 101.7 and HR> 90.
Please clarify which of the following most accurately describes the status of the patient's infection:
Viral sepsis POA
COVID -19 infection only
Other
Sepsis
- Systemic manifestations of infection, with 2 or more SIRS criteria which include:
- Fever >100.4 degrees F or hypothermia < 96.8 degrees F
- Leukocytosis - WBC > 12,000 or leukopenia - WBC < 4,000 or > 10% bands
- Tachycardia > 90 beats per minute
- Tachypnea - RR > 20 breaths per minute or PaCO2 , 32mmHg
Source: Merck Manual 2013
- Indicate the known or suspected organism
- Indicate the known or suspected underlying infection, such as COVID-19 infection
Localized Infection Only, Without Systemic Illness
- indicate the site/source, such as COVID-19 infection
Other
Unable to Determine
Use of terms such as suspected, likely, concern for, or probable (associated with a specific diagnosis that is being evaluated, monitored, or treated as if it exists) are acceptable and can be coded in the inpatient setting, when documented at the
time of discharge.
Thank you,
Keri TUBBSN,RN,CCDS
CDI Specialist
Available via [place] text
Please use your independent medical judgment in providing your response.
--- NOTE | 2023-06-06 14:50 | CM ---
To date, discharge plan of care remains home with no needs.
[2023-06-06 16:26] LABS: Glucose - Point of Care 258 mg/dl (70-99)
[2023-06-06] MEDS: COUMADIN 7.5 MG PO (17:22)
[2023-06-06 21:39] LABS: Glucose - Point of Care 331 mg/dl (70-99)
[2023-06-06] MEDS: NOVOLOG FLEXPEN 7 UNITS SC (21:44)
[2023-06-07 03:21] VITALS: BP 114/61
[2023-06-07 04:54] LABS: % Immature Granulocytes 0.3 % (0-0.5); % Lymphocytes 8.2 % (20.5-51.1); % Monocytes 5.9 % (1.7-9.3); % Neutrophils 85.6 % (42.2-75.2); Absolute Lymphocytes 0.7 10^3/uL (1.2-3.4); Absolute Monocytes 0.5 10^3/uL (0.1-0.6); Absolute Neutrophils 6.8 10^3/uL (1.4-6.5); Hematocrit 39.3 % (39.0-52.0); Hemoglobin 14.1 g/dL (13.0-18.0); Mean Corp Hgb Conc. 35.9 g/dL (33.0-37.0); Mean Corpuscular Hgb 34.5 pg (27.0-31.0); Mean Corpuscular Volume 96.1 fL (80.0-94.0); Mean Platelet Volume 10.7 fL (7.4-10.4); Nucleated Red Blood Cells % 0 % (-); Platelet Count 176 10^3/uL (130-400); Red Blood Cell Count 4.09 10^6/uL (4.70-6.10); Red Cell Dist. Width 12.1 % (11.5-14.5); White Blood Cell Count 7.9 10^3/uL (4.8-10.8)
[2023-06-07 05:10] LABS: INR 1.99; PT 22.8 Sec (11.4-14.6)
[2023-06-07 05:20] LABS: ALT (SGPT) 27 U/L (0-50); AST (SGOT) 34 U/L (17-59); Albumin 3.4 g/dl (3.5-5.0); Alkaline Phosphatase 55 U/L (38-126); Blood Urea Nitrogen 34 mg/dl (9-20); Calcium 8.2 mg/dl (8.4-10.2); Carbon Dioxide 26 mmol/L (22-30); Chloride 102 mmol/L (98-107); Estimated Creatinine Clearance 71 ml/min; Glucose 238 mg/dl (70-99); Potassium 4.3 mmol/L (3.5-5.1); Sodium 130 mmol/L (135-145); Total Bilirubin 0.5 mg/dl (0.2-1.3); Total Protein 5.8 g/dl (6.3-8.2); eGFR > 60.00
[2023-06-07 07:05] VITALS: BP 135/68
[2023-06-07 07:33] LABS: Glucose - Point of Care 241 mg/dl (70-99)
--- NOTE | 2023-06-07 08:57 | W.PN.HOSP.TC ---
Today's Communication/Plan
-
dc now
Assessment / Plan
Assessment / Plan
# Acute hypoxia likely from acute COVID-19 infection
Pt states he was vaccinated and boosted, but did not receive most recent booster (last one he had was ~1yr ago)
-90-94 on room air on admission
most recently 93-96% on room air
-Currently afebrile
-Chest x-ray: No acute disease of the chest.
-ID stopped IV Decadron
-Paxlovid to continue, to receive dose #6 prior to dc
-Tylenol as needed for fever and pain
-mucinex as needed for cough
-ID consult appreciated
Viral sepsis POA
(tachycardia, HR 132, tachypnea 20-24, from Covid-19)
# Pseudohyponatremia with elevated blood sugar
-Corrected sodium 136
# Tachycardia dehydration resolved, HR now NSR in 60's
-EKG with sinus tachycardia
-Fluids stopped
# Type 2 diabetes with hyperglycemia
-Blood sugar elevated into the 390's
-Received NovoLog 5 units in ER
-Glimepiride continued
-Hold metformin
Hga1c 8.3%
will resume preadmit oral meds. Discussed with , he will need follow up with PCP to adjust diabetic medication, with Decadron stopped, diabetic needs should drop
# Essential hypertension
-Lisinopril continued
# Hyperlipidemia
-Statin held as patient is on Paxlovid
# History of DVT/factor V Leyden
-Coumadin continued, was subtherapeutic on admission
discussed with , she states his INR has been perfect and did not miss doses prior to admission, she believes it relates to the Covid
-Daily PT/INR
1.28-->1.43-->1.49-extra 2 mg given 06/07-->1.99
# DVT prophylaxis
-Coumadin
# CODE STATUS
-Full code
reviewed with by phone
More than 30 minutes spent in discharge including
Final examination of the patient
Summarizing hospital stay
Instructions for continuing care to all relevant caregivers
Preparation of discharge records, prescriptions, and referral forms
Total time spent (in minutes): 45
Anticipated Discharge: Today
Subjective/Interval History
-
Date of Service: June 07, 2023
Feels well and is anxiously awaiting dc
Objective Data
-
Labs:
Laboratory Results
06/07/23 06/07/23
04:31 04:32
WBC 7.9
Hgb 14.1
Hct 39.3
Plt Count 176
PT 22.8 H
INR 1.99
Sodium 130 L
Potassium 4.3
Chloride 102
Carbon Dioxide 26
BUN 34 H
Creatinine 1.0
Glucose 238 H
Calcium 8.2 L
Total Bilirubin 0.5
AST 34
ALT 27
Alkaline Phosphatase 55
Vital Signs:
Vital Signs
Temp Pulse Resp BP Pulse Ox
97.7 F 57 12 135/68 98
06/07/23 07:05 06/07/23 07:05 06/07/23 07:05 06/07/23 07:05 06/07/23 07:05
I&O
06/06/23 06/07/23 06/08/23
06:59 06:59 06:59
Intake Total 2980 / 2980 1510 / 1510
Balance 2980 / 2980 1510 / 1510
Review of Systems
-
History Source: Patient and Coordinated Provider
Constitutional: Reports Fever (98.7-101.7 since admission, last fever of 100.4 was 24hrs)
EENT: Reports Runny Nose (resolved)
Respiratory: Reports Cough (resolved); Denies Trouble Breathing
Cardiac: Reports No Symptoms; Denies Chest Pain
Abdomen/GI: Denies Abdominal Pain
Neuro: Reports Other (pt states he was feeling 'looped', but feels better currently)
Physical Exam
-
General: Well Developed, Well Nourished and No Apparent Distress
HEENT: Normocephalic, Atraumatic and Moist Mucous Membranes
Respiratory: Clear to Auscultation; Negative Wheezes, Rales or Rhonchi
Cardiac: Regular Rhythm and S1/S2
GI: Soft, Nontender and Nondistended
Musculoskeletal: No Clubbing, No Cyanosis and No Edema
Neuro: Awake, Alert (as per , mentation appears back to baseline) and Oriented
[2023-06-07] MEDS: MUCINEX 600 MG PO (09:37)
[2023-06-07] MEDS: ZESTRIL 2.5 MG PO (09:37)
[2023-06-07] MEDS: AMARYL 1 MG PO (09:37)
[2023-06-07] MEDS: PAXLOVID 2X150 MG-100 MG DOSE PACK 1 DOSE PO (09:37)
[2023-06-07] MEDS: NOVOLOG FLEXPEN-MODERATE RESISTANCE 3 UNITS SC (09:38)
--- NOTE | 2023-06-07 10:28 | PTCARENOTE ---
Discharge information discussed with Pt at bedside. Iv access removed. Belongings from room taken with Pt. Pt wheeled by staff to front lobby, to drive Pt home.
--- NOTE | 2023-06-07 10:32 | CM ---
Patient has been medically cleared for discharge to home with no additional skilled services. Patient arranged for family member to transport home.
--- NOTE | 2023-06-07 10:33 | W.DS.TRANS ---
DC Summary - Adult Manager
-
Discharge Instructions:
Discharge Diagnosis/Procedures Covid-19
Diet Diabetic, Carb Controlled
Activity No strenuous activity
Driving Restrictions Not until seen by your Dr
Bathing Restrictions None
Blood Work INR 06/10, CBC, CMP in 1-2 weeks
Instructions:
Stand-Alone Forms:
Changes to Home Medications: Yes
Discharge Medications:
DC Medications w/original date entered in [facility]
lorazepam 0.5 mg tablet 0.5 mg PO DAILY PRN restless leg 07/21/20
simvastatin 40 mg tablet 40 mg PO HS 07/21/20
glimepiride 1 mg tablet 1 mg PO BID #60 tabs 07/27/20
lisinopril 2.5 mg tablet 2.5 mg PO DAILY 30 days #30 tabs 07/27/20
metformin 500 mg tablet 1,000 mg PO BID@0800,1700 06/04/23
warfarin 5 mg tablet (Jantoven) 5 mg PO MOWEFR@1800 06/04/23
warfarin 5 mg tablet (Jantoven) 7.5 mg PO SUTUTHSA@1800 06/04/23
nirmatrelvir 300 mg (150 mg x2)-ritonavir 100 mg tablet,dose pack (Paxlovid) 1 ea PO BID Infection #4 ea 06/07/23
Home Medication Changes
Paxlovid for another 4 doses
stop Simvastatin until completes Paxlovid
Pending Results: No
== END 2023-06-07 09:58 | disposition home or self-care (01) | DRG 871 ==
LOC: 2 NORTH 23:31
PROVIDERS: Physician Assistant Medical; Registered Nurse; ADMITTING PHYSICIAN Internal Medicine; ATTENDING PHYSICIAN Internal Medicine; CONSULT PHYSICIAN Student in an Organized Health Care Education/Training Program; EMERGENCY PHYSICIAN Emergency Medicine; FAMILY PHYSICIAN Family Medicine
DX: A41.89 Other specified sepsis (principal); U07.1 COVID-19; D68.51 Activated protein C resistance; I10 Essential (primary) hypertension; E78.00 Pure hypercholesterolemia, unspecified; E11.65 Type 2 diabetes mellitus with hyperglycemia; R09.02 Hypoxemia; E86.0 Dehydration
CPT/HCPCS: 71046; 80053; 81003; 81015; 82010; 82962; 83036; 85025; 85610; 85730; 87040; 87811; 93005; 96360; 96372; 97161; 97165; 99285